=== PATIENT | male | born 1965 | race Caucasian/White ===

== ENCOUNTER 2021-07-16 14:25 | Emergency (ER) | payer OTHER ==
[2021-07-16 15:24] LABS: Urine Blood Negative (Negative); Urine Glucose Negative (Negative); Urine Protein Negative (Negative); Urine Specific Gravity <=1.005 (1.005-1.030); Urine pH 5.5 (5.0-7.0)
[2021-07-16 15:50] LABS: Absolute Lymphocytes (CBC) 2.6 K/uL (0.7-4.9); Basophils % 0.5 % (0-1.3); Hematocrit 44.1 % (39.6-49.0); Lymphocytes % 36.6 % (15.3-44.8); MPV 8.9 fL (7.6-11.3); RBC Red Blood Cell Count 4.62 M/uL (4.33-5.43)
[2021-07-16] MEDS ORDERED: NA CHLORIDE 0.9% 1,000 ML ONE (16:10)
[2021-07-16 16:15] LABS: ALT/SGPT 29 U/L (12-78); AST/SGOT 11 U/L (15-37); Albumin 3.6 g/dL (3.4-5.0); Alkaline Phosphatase 65 U/L (45-117); BUN Blood Urea Nitrogen 10 mg/dL (7-18); Bicarbonate 26 mmol/L (21-32); Bilirubin Direct 0.1 mg/dL (0-0.2); Bilirubin Total 0.4 mg/dL (0.2-1.0); Glucose Level 103 mg/dL (74-106); Lipase 110 U/L (73-393); Potassium 4.1 mmol/L (3.5-5.1); Protein, Total 7.4 g/dL (6.4-8.2); Sodium Level 143 mmol/L (136-145)
[2021-07-16 16:26] LABS: Urine Bacteria NONE SEEN /HPF (NONE SEEN); Urine RBC NONE SEEN /HPF (NONE SEEN)
--- NOTE | 2021-07-16 16:59 | RAD REPORT ---
EXAM DESCRIPTION: CT - Abdomen Pelvis W Contrast - 07/16/2021 4:30 pm CLINICAL HISTORY: Abdominal pain COMPARISON: none. TECHNIQUE: Computed axial tomography of the abdomen pelvis was obtained. 100 cc Isovue-300 was admin istered intravenously. Oral contrast was not requested which limits evaluation of bowel. All CT scans are performed using dose optimization technique as appropriate and may include automated exposure control or mA/KV adjustment according to patient size. FINDINGS: Mild fatty liver The spleen, pancreas, adrenal and kidneys appear unremarkable. Normal appendix Diverticula stem from the colon. Mild stranding adjacent to the sigmoid colon. No free air. No absces s. Mild secondary inflammation involves the adjacent left bladder wall IMPRESSION: Mild sigmoid diverticulitis
--- NOTE | 2021-07-16 17:16 | ER ---
Nurse's Notes [facility] Name: Bobby Smith Age: 56 yrs Sex: Male : 1965 Arrival Date: 07/16/2021 Time: 14:28 Bed DIS2 Private MD: Diagnosis: Diverticulitis of large intestine without perforation or abscess without bleeding-Sigmoid Colon Presentation: 07/16 14:54 Chief complaint: Patient states: Went to PCP today and was told may have 'acute vg1 appendicitis'. About a month ago pt was having RLQ that comes and goes. States NV and constipation. Coronavirus screen: Vaccine status: Patient reports being unvaccinated. Ebola Screen: Patient negative for fever greater than or equal to 101.5 degrees Fahrenheit, and additional compatible Ebola Virus Disease symptoms. Initial Sepsis Screen: Does the patient meet any 2 criteria? No. Patient's initial sepsis screen is negative. Does the patient have a suspected source of infection? No. Patient's initial sepsis screen is negative. Risk Assessment: Do you want to hurt yourself or someone else? Patient reports no desire to harm self or others. Onset of symptoms was June 15, 2021. 14:54 Method Of Arrival: Ambulatory vg1 14:54 Acuity: DREW 3 vg1 Triage Assessment: 14:57 General: Appears in no apparent distress. comfortable, Behavior is calm, cooperative. vg1 Pain: Complains of pain in right lower quadrant. GI: Reports constipation, nausea, vomiting. Historical: - Allergies: 14:57 No Known Allergies; vg1 - Home Meds: 14:57 Flomax Oral [Active]; vg1 - PMHx: 14:57 Prostate; vg1 - PSHx: 14:57 Back; vg1 - Immunization history:: Adult Immunizations up to date, Client reports having NOT received the Covid vaccine. - Social history:: Smoking status: Patient reports the use of cigarette tobacco products, smokes one-half pack cigarettes per day. Screenin:00 Abuse screen: Denies threats or abuse. Denies injuries from another. Nutritional kg screening: No deficits noted. Tuberculosis screening: No symptoms or risk factors identified. Fall Risk None identified. Assessment: 15:00 General: Appears in no apparent distress. Behavior is calm, cooperative, appropriate kg for age, quiet. Pain: Complains of pain in right lower quadrant Pain currently is 8 out of 10 on a pain scale. at worst was 9 out of 10 on a pain scale. level that patient reports is acceptable is 5 out of 10 on a pain scale. Pain began One and off for one month. GI: Bowel sounds present X 4 quads. Abd is soft X 4 quads Abdomen is tender to palpation in right upper quadrant and right lower quadrant Reports constipation, nausea. Vital Signs: 14:54 BP 126 / 75; Pulse 68; Resp 16; Temp 96.8; Pulse Ox 100% ; Weight 89.36 kg; Height 5 vg1 ft. 10 in. (177.80 cm); Pain 5/10; 17:44 BP 149 / 71; Pulse 55; Resp 20; Pulse Ox 100% on R/A; kg 14:54 Body Mass Index 28.27 (89.36 kg, 177.80 cm) vg1 ED Course: 14:28 Patient arrived in ED. rg4 14:57 Triage completed. vg1 14:57 Arm band placed on. vg1 15:00 Patient has correct armband on for positive identification. kg 15:00 No provider procedures requiring assistance completed. IV discontinued, intact, kg bleeding controlled, No redness/swelling at site. Pressure dressing applied. 15:15 Catia Zavala, HARRIET is Primary Nurse. kg 15:20 Irving Panda PA is PHCP. cp 15:20 Hugo Moreno MD is Attending Physician. cp 15:35 Inserted saline lock: 20 gauge in right antecubital area, using aseptic technique. kg Blood collected. 15:40 Lipase Sent. kg 15:40 Hepatic Function Sent. kg 15:40 CBC with Diff Sent. kg 15:40 Basic Metabolic Panel Sent. kg 16:12 Urine Microscopic Only Sent. kg 16:12 Lipase Sent. kg 16:12 Hepatic Function Sent. kg 16:12 Basic Metabolic Panel Sent. kg 16:30 CT Abd/Pelvis - IV Contrast Only In Process Unspecified. EDMS Administered Medications: 15:50 Drug: NS 0.9% 1000 ml Route: IV; Rate: 1 bolus; Site: right antecubital; kg 17:00 Follow up: IV Status: Completed infusion; IV Intake: 700ml kg 17:26 Follow up: Response: No adverse reaction kg 17:25 Drug: metroNIDAZOLE 500 mg Volume: 100 ml; Route: IVPB; Infused Over: 30 mins; Site: kg right antecubital; 17:47 Follow up: Response: No adverse reaction; IV Status: Completed infusion; IV Intake: 50mlkg 17:25 Drug: Cipro (ciprofloxacin) 500 mg Route: PO; kg 17:47 Follow up: Response: No adverse reaction kg Intake: 17:00 IV: 700ml; Total: 700ml. kg 17:47 IV: 50ml; Total: 750ml. kg Outcome: 17:15 Discharge ordered by . lebron 17:46 Discharged to home ambulatory. kg 17:46 Condition: improved 17:46 Discharge instructions given to patient, Instructed on discharge instructions, follow up and referral plans. Demonstrated understanding of instructions, follow-up care, medications, Prescriptions given X 3. 17:47 Patient left the ED. kg Signatures: Dispatcher [employer] EDMS Irving Panda PA PA cp Garcia, Rubi rg4 Akiko Patterson, RN RN vg1 Catia Zavala RN RN kg
--- NOTE | 2021-07-16 17:16 | EDPHYS ---
Physician Documentation [facility] Name: Bobby Smith Age: 56 yrs Sex: Male : 1965 Arrival Date: 07/16/2021 Time: 14:28 Bed DIS2 Private MD: ED Physician Hugo Moreno HPI: 07/16 15:35 This 56 yrs old Male presents to ER via Ambulatory with complaints of cp Abdominal Pain. 15:35 The patient presents with abdominal pain right lower quadrant. Onset: The cp symptoms/episode began/occurred 1 month(s) ago, and became worse 4 day(s) ago. The symptoms do not radiate. 15:35 Associated signs and symptoms: Pertinent positives: nausea, vomiting, and diarrhea, cp anorexia, diarrhea, nausea, palpitations, testicular pain, vomiting blood, right groin and right testicle, Pertinent negatives: nausea, vomiting, and diarrhea, constipation, dysuria, fever. 15:35 The symptoms are described as waxing/waning. cp Historical: - Allergies: 14:57 No Known Allergies; vg1 - Home Meds: 14:57 Flomax Oral [Active]; vg1 - PMHx: 14:57 Prostate; vg1 - PSHx: 14:57 Back; vg1 - Immunization history:: Adult Immunizations up to date, Client reports having NOT received the Covid vaccine. - Social history:: Smoking status: Patient reports the use of cigarette tobacco products, smokes one-half pack cigarettes per day. ROS: 15:40 Abdomen/GI: Positive for abdominal pain, Negative for vomiting, diarrhea, constipation, cp black/tarry stool, rectal bleeding. 15:40 Constitutional: Negative for fever. cp 15:40 : Positive for flank pain, testicular pain Negative for urinary symptoms, hematuria. Exam: 15:45 Constitutional: The patient appears in no acute distress, alert, awake, cp non-diaphoretic, non-toxic, well developed, well nourished. 15:45 Head/Face: Normocephalic, atraumatic. cp 15:45 Eyes: Periorbital structures: appear normal, Conjunctiva: normal, no exudate, no injection, Sclera: no appreciated abnormality, Lids and lashes: appear normal, bilaterally. 15:45 ENT: External ear(s): are unremarkable, Nose: is normal, Mouth: Lips: moist, Posterior pharynx: Airway: no evidence of obstruction, patent. 15:45 Chest/axilla: Inspection: normal. 15:45 Cardiovascular: Rate: normal. 15:45 Respiratory: the patient does not display signs of respiratory distress, Respirations: normal, no use of accessory muscles, no retractions, labored breathing, is not present. 15:45 Abdomen/GI: Exam negative for discomfort, distension, guarding, Inspection: abdomen appears normal, Palpation: soft, in all quadrants, mild abdominal tenderness, in the right lower quadrant, rebound tenderness, is not appreciated, involuntary guarding, is not appreciated. 15:45 Back: CVA tenderness, is absent. Vital Signs: 14:54 BP 126 / 75; Pulse 68; Resp 16; Temp 96.8; Pulse Ox 100% ; Weight 89.36 kg; Height 5 vg1 ft. 10 in. (177.80 cm); Pain 5/10; 17:44 BP 149 / 71; Pulse 55; Resp 20; Pulse Ox 100% on R/A; kg 14:54 Body Mass Index 28.27 (89.36 kg, 177.80 cm) vg1 MDM: 15:30 Patient medically screened. cp 16:00 Differential diagnosis: appendicitis, bowel obstruction, non-specific abd pain, cp Ureterolithiasis, urinary tract infection, diverticulitis. 17:15 Data reviewed: vital signs, nurses notes, lab test result(s), radiologic studies, CT cp scan. 17:15 Counseling: I had a detailed discussion with the patient and/or guardian regarding: the cp historical points, exam findings, and any diagnostic results supporting the discharge/admit diagnosis, lab results, radiology results, the need for outpatient follow up, a family practitioner, to return to the emergency department if symptoms worsen or persist or if there are any questions or concerns that arise at home. ED course: VSS. Patient appears non-toxic. Patient refused any pain medications while being evaluated in ED. Will discharge to home for continued monitoring with RXs for oral antibiotics. 07/16 15:23 Order name: Urine Dipstick-Ancillary; Complete Time: 16:27 EDMS 07/16 16:27 Interpretation: Reviewed. 07/16 15:34 Order name: Basic Metabolic Panel; Complete Time: 16:27 cp 07/16 16:27 Interpretation: Normal except: CL 111. cp 07/16 15:34 Order name: CBC with Diff; Complete Time: 16:27 cp 07/16 16:27 Interpretation: Reviewed. 07/16 15:34 Order name: Hepatic Function; Complete Time: 16:27 cp 07/16 16:27 Interpretation: Normal except: AST 11; GLOB 3.8; A/G 0.9. cp 07/16 15:34 Order name: Lipase; Complete Time: 16:27 cp 07/16 15:34 Order name: Urine Microscopic Only; Complete Time: 16:27 cp 07/16 16:27 Interpretation: Reviewed. 07/16 15:34 Order name: IV Saline Lock; Complete Time: 15:40 cp 07/16 15:34 Order name: Labs collected and sent; Complete Time: 15:40 cp 07/16 15:47 Order name: CT Abd/Pelvis - IV Contrast Only; Complete Time: 17:10 cp Administered Medications: 15:50 Drug: NS 0.9% 1000 ml Route: IV; Rate: 1 bolus; Site: right antecubital; kg 17:00 Follow up: IV Status: Completed infusion; IV Intake: 700ml kg 17:26 Follow up: Response: No adverse reaction kg 17:25 Drug: metroNIDAZOLE 500 mg Volume: 100 ml; Route: IVPB; Infused Over: 30 mins; Site: kg right antecubital; 17:47 Follow up: Response: No adverse reaction; IV Status: Completed infusion; IV Intake: 50mlkg 17:25 Drug: Cipro (ciprofloxacin) 500 mg Route: PO; kg 17:47 Follow up: Response: No adverse reaction kg Disposition: 17:25 Chart complete. cp 18:06 Co-signature as Attending Physician, Hugo Moreno MD I agree with the assessment and rn plan of care. Attestation: The patient's history, exam findings, diagnostics, and a summary of any interventions or procedures was reviewed in detail with Irving BENSON. Disposition Summary: 07/16/21 17:15 Discharge Ordered Location: Home cp Problem: new cp Symptoms: have improved cp Condition: Stable cp Diagnosis - Diverticulitis of large intestine without perforation or abscess without bleeding - cp Sigmoid Colon Followup: cp - With: Private Physician - When: 2 - 3 days - Reason: Recheck today's complaints Discharge Instructions: - Discharge Summary Sheet cp - High-Fiber Diet cp - Diverticulitis cp Forms: - Medication Reconciliation Form cp - Thank You Letter cp - Antibiotic Education cp - Prescription Opioid Use cp Prescriptions: - Zofran 4 mg Oral Tablet - take 1 tablet by ORAL route every 12 hours As needed; 20 tablet; Refills: 0, cp Product Selection Permitted - Cipro 500 mg Oral Tablet - take 1 tablet by ORAL route every 12 hours for 7 days; 14 tablet; Refills: 0, cp Product Selection Permitted - Metronidazole 500 mg Oral Tablet - take 1 tablet by ORAL route every 8 hours; 30 tablet; Refills: 0, Product cp Selection Permitted Signatures: Dispatcher [employer] EDHugo Guo MD MD rn Page, Corey, PA PA cp Garcia, Victoria RN RN vg1 Catia Zavala RN RN kg
[2021-07-16] MEDS ORDERED: METRONIDAZOLE 500mg IVPB 500 MG/100 ML BAG IV ONE (17:45)
[2021-07-16] MEDS ORDERED: CIPROFLOXACIN HCL 500 MG TAB ONE (17:45)
[2021-07-16 17:53] VITALS: TEMP 96.8; O2SAT 100
[2021-07-16 17:54] VITALS: BP 149/71
== END 2021-07-16 17:47 | disposition home or self-care (01) ==
LOC: ER 14:25
DX: K57.32 Diverticulitis of large intestine without perforation or abscess without bleeding (principal); F17.210 Nicotine dependence, cigarettes, uncomplicated
CPT/HCPCS: 96365; 96361; 85025; 80048; 36415; 80076; 83690; 74177; 99284; Q9967; J7030; 81003; 81015

== ENCOUNTER 2025-08-04 10:30 | Emergency (ER) | payer OTHER ==
[2025-08-04] MEDS ORDERED: IBUPROFEN 400 MG TAB ONE (10:48)
[2025-08-04] MEDS ORDERED: HYDROCODONE/APAP 5/325 MG TAB ONE (10:48)
--- NOTE | 2025-08-04 11:47 | RAD REPORT ---
EXAM: XR Hand Left 3 View HISTORY: [facility] MAIN Swelling;Pain Bed:IW1 COMPARISON: None TECHNIQUE: 3 radiographic views of the LEFT hand submitted. FINDINGS: No evidence of acute fracture or dislocation. Joint alignment is maintained. Mild second d igit soft tissue swelling is seen.. Radiopaque linear foreign object along the volar aspect of the second digit distal phalanx. Small lucent lesion within the distal scaphoid, may suggest a benign bon e cyst. IMPRESSION: Radiopaque linear foreign body along the volar aspect of the second digit distal phalanx.
[2025-08-04] MEDS ORDERED: LIDOCAINE 1% 20 ML MDV ONE (11:48)
--- NOTE | 2025-08-04 12:47 | ER ---
Nurse's Notes [facility] Name: Bobby Smith Age: 60 yrs Sex: Male : 1965 Arrival Date: 08/04/2025 Time: 10:30 Bed 13 Private MD: Diagnosis: Laceration with foreign body of left index finger without damage to nail Presentation: 08/04 10:39 Chief complaint: Patient states: got a piece of metal in his left index finger since iw Tuesday. Coronavirus screen: At this time, the client does not indicate any symptoms associated with coronavirus-19. Ebola Screen: No symptoms or risks identified at this time. Initial Sepsis Screen: Does the patient meet any 2 criteria? No. Patient's initial sepsis screen is negative. Does the patient have a suspected source of infection? No. Patient's initial sepsis screen is negative. Risk Assessment: Do you want to hurt yourself or someone else? Patient reports no desire to harm self or others. Onset of symptoms was August 02, 2025. 10:39 Method Of Arrival: Ambulatory iw 10:39 Acuity: DREW 4 iw Triage Assessment: 12:51 General: Appears. ap3 Historical: - Allergies: 10:41 No Known Allergies; iw - PMHx: 10:41 Prostate; Hypertensive disorder; iw - PSHx: 10:41 back; iw - Immunization history:: Last tetanus immunization: up to date. - Infectious Disease History:: Denies. - Social history:: Smoking status: Patient reports the use of cigarette tobacco products, smokes one pack cigarettes per day. Screenin:50 [facility] ED Fall Risk Assessment (Adult) History of falling in the last 3 months, ap3 including since admission No falls in past 3 months (0 pts) Confusion or Disorientation No (0 pts) Intoxicated or Sedated Impaired Gait No (0 pts) Mobility Assist Device Used No (0 pt) Altered Elimination No (0 pt) Score/Fall Risk Level 0 - 2 = Low Risk Oriented to surroundings, Maintained a safe environment, Educated pt \T\ family on fall prevention, incl call for assistance when getting out of bed, Assessed \T\ reinforced patient's understanding of fall precautions, Hourly rounding (assess needs \T\ fall precautionary measures) done, Used ambulatory aids as needed (educated on \T\ assisted with). Abuse screen: Denies threats or abuse. Nutritional screening: No deficits noted. Tuberculosis screening: No symptoms or risk factors identified. Assessment: 12:51 General: Appears in no apparent distress. Behavior is calm, cooperative, appropriate ap3 for age. Pain: Complains of pain in right index finger. Neuro: Level of Consciousness is awake, alert, obeys commands, Oriented to person, place, time, situation, Appropriate for age. Cardiovascular: Patient's skin is warm and dry. Respiratory: Airway is patent Respiratory effort is even, unlabored, Respiratory pattern is regular, symmetrical. Derm: Wound noted palmar aspect of distal phalanx of left index finger. Vital Signs: 10:39 BP 136 / 72; Pulse 57; Resp 16; Temp 97.6; Pulse Ox 100% on R/A; Weight 87.09 kg; iw Height 5 ft. 9 in. ; Pain 7/10; 12:53 BP 135 / 76; Pulse 62; Resp 17; Pulse Ox 99% ; ap3 10:39 Body Mass Index 28.35 (87.09 kg, 175.26 cm) iw 10:39 Pain Scale: Adult iw ED Course: 10:34 Patient arrived in ED. im 10:34 Jevon Marcial FNP-C is PHCP. dr5 10:34 Irving Briscoe MD is Attending Physician. dr5 10:41 Triage completed. iw 10:41 Arm band placed on. iw 10:50 Alba Mendoza, RN is Primary Nurse. ap3 11:26 Hand Left 3 View XRAY In Process Unspecified. EDMS 12:51 Assist provider with laceration repair on palmar aspect of distal phalanx of left index ap3 finger using sutures. Set up tray. Performed by Jevon GARZA Dressed with Neosporin, Patient tolerated well. Patient did not have IV access during this emergency room visit. 12:53 Patient has correct armband on for positive identification. Bed in low position. Call ap3 light in reach. Adult w/ patient. Provided Education on: discharge instructions. Administered Medications: 11:04 Not Given (Patient Refused): hydrocodone-acetaminophen5 mg-325 mg 2 tabs PO once ap3 11:04 Not Given (Patient Refused): [id number] mg PO once ap3 12:50 Drug: Lidocaine Infiltration (1 %) 20 ml 20 ml Infiltration once; to bedside {Note: by ap3 FNP. Jevon} Volume: 20 ml; Route: Infiltration; 12:50 Follow up: Response: No adverse reaction ap3 Medication: 12:52 VIS not applicable for this client. ap3 Outcome: 12:46 Discharge ordered by . dr5 12:52 Discharged to home ambulatory, with family, ap3 12:52 Condition: good 12:52 Discharge instructions given to patient, Instructed on discharge instructions, follow up and referral plans. medication usage, Demonstrated understanding of instructions, follow-up care, medications, Prescriptions given X 2, 12:54 Patient left the ED. ap3 Signatures: Dispatcher [employer] EDMS Jordyn Kimball RN RN iw Alba Mendoza RN RN ap3 Bridgett Ziegler Dustin, FNP-C FNP-Cdr5
--- NOTE | 2025-08-04 12:47 | EDPHYS ---
Physician Documentation [facility] Name: Bobby Smith Age: 60 yrs Sex: Male : 1965 Arrival Date: 08/04/2025 Time: 10:30 Bed 13 Private MD: ED Physician Irving Briscoe HPI: 08/04 12:46 This 60 yrs old Male presents to ER via Ambulatory with complaints of Hand dr5 Swelling - left index finger. 12:48 Patient is a 60-year-old male with history of hypertension coming in with foreign body dr5 to left index finger that occurred on Tuesday. Patient states he removed a piece of metal but thinks there is a piece still stuck in his left index finger. Patient has fever, shortness of breath, chest pain.. Historical: - Allergies: 10:41 No Known Allergies; iw - PMHx: 10:41 Prostate; Hypertensive disorder; iw - PSHx: 10:41 back; iw - Immunization history:: Last tetanus immunization: up to date. - Infectious Disease History:: Denies. - Social history:: Smoking status: Patient reports the use of cigarette tobacco products, smokes one pack cigarettes per day. ROS: 12:48 Constitutional: as per hpi dr5 Exam: 12:48 Constitutional: This is a well developed, well nourished patient who is awake, alert, dr5 and in no acute distress. Head/Face: Normocephalic, atraumatic. Eyes: Pupils equal round and reactive to light, extra-ocular motions intact. Lids and lashes normal. Conjunctiva and sclera are non-icteric and not injected. Cornea within normal limits. Periorbital areas with no swelling, redness, or edema. ENT: Nares patent. No nasal discharge, no septal abnormalities noted. Tympanic membranes are normal and external auditory canals are clear. Oropharynx with no redness, swelling, or masses, exudates, or evidence of obstruction, uvula midline. Mucous membranes moist. Chest/axilla: Normal chest wall appearance and motion. Nontender with no deformity. No lesions are appreciated. Cardiovascular: Regular rate and rhythm with a normal S1 and S2. Normal PMI, no JVD. No pulse deficits. Respiratory: Lungs have equal breath sounds bilaterally, clear to auscultation. No rales, rhonchi or wheezes noted. No increased work of breathing, no retractions or nasal flaring. Back: No spinal tenderness. No costovertebral tenderness. Full range of motion. MS/ Extremity: Pulses equal, no cyanosis. Neurovascular intact. Full, normal range of motion. Neuro: Awake and alert, GCS 15, oriented to person, place, time, and situation. Cranial nerves II-XII grossly intact. Motor strength 5/5 in all extremities. Sensory grossly intact. Cerebellar exam normal. Normal gait. 12:48 Skin: injury, Old puncture wound noted to left distal index finger that has healed. Mild swelling noted with full range of motion. NVI, Vital Signs: 10:39 BP 136 / 72; Pulse 57; Resp 16; Temp 97.6; Pulse Ox 100% on R/A; Weight 87.09 kg; iw Height 5 ft. 9 in. ; Pain 7/10; 12:53 BP 135 / 76; Pulse 62; Resp 17; Pulse Ox 99% ; ap3 10:39 Body Mass Index 28.35 (87.09 kg, 175.26 cm) iw 10:39 Pain Scale: Adult iw Procedures: 12:48 Foreign Body Removal: a piece of metal, from the left palmar aspect of distal phalanx dr5 of left index finger, by incising to remove, using lidocaine 1% without epinephrine to anesthesize the area, tweezers, Dressing: The patient tolerated the removal well, Unable to retrieve piece of metal. Explored wound after incision for 15 minutes with no retrieval of piece of metal. Measured on x-ray approximately 9.8mm from surface.. Laceration: 12:48 Wound Repair of 1cm ( 0.4in ) subcutaneous laceration to palmar aspect of distal dr5 phalanx of left index finger. Linear shaped.. Distal neuro/vascular/tendon intact. Anesthesia: Local anesthetic administered with 2 mls of 1% lidocaine. Wound prep: Simple cleansing. Skin closed with 1 4-0 Prolene using simple sutures and sterile technique. Dressed with non-adherent dressing. Patient tolerated well. MDM: 10:34 Medical Screening Exam initiated dr5 12:48 Differential Diagnosis Foreign Body, Cellulitis, Abrasion. Data reviewed: vital signs, dr5 nurses notes, radiologic studies, plain films. Consideration of Admission/Observation Escalation of care including admission/observation considered. Escalation considered if patient had neurovascular compromise of finger. I considered the following discharge prescriptions or medication management in the emergency department I discussed and recommended Over The Counter medications, Medications were administered in the Emergency Department. See MAR. Independent interpretation of the following test(s) in the Emergency Department X-Ray: My interpretation is Independent interpretation of x-ray reveals piece of metal in finger. Care significantly affected by the following chronic conditions: Hypertension. Care significantly affected by the following Social Determinants of Health: Poor access to healthcare and/or lack of insurance, Poor access to transportation, Problems related to employment. Counseling: I had a detailed discussion with the patient and/or guardian regarding the historical points, exam findings, and any diagnostic results supporting the discharge/admit diagnosis, the presence of at least one elevated blood pressure reading (>120/80) during this emergency department visit, the need for outpatient follow up, for definitive care, Yonny Gray in [place], to return to the emergency department if symptoms worsen or persist or if there are any questions or concerns that arise at home. Medication response: Lidocaine. Response to treatment: the patient's symptoms have resolved after treatment. Special discussion: I discussed with the patient/guardian in detail that at this point there is no indication for admission to the hospital. It is understood, however, that if the symptoms persist or worsen the patient needs to return immediately for re-evaluation. Based on the history and exam findings, there is no indication for further emergent testing or inpatient evaluation. I discussed with the patient/guardian the need to see the hand specialist for further evaluation of the symptoms. ED course: Recommended patient follow Dr. Yonny Gray tomorrow for foreign body removal. Offered patient to be transferred downtown today for removal but patient kindly declined and would like to go outpatient. Attempted several times to remove piece of metal but unable to retrieve. Will start patient on Keflex. All questions answered. Strict ER precautions given.. 08/04 10:39 Order name: Hand Left 3 View XRAY; Complete Time: 11:53 dr5 Administered Medications: 11:04 Not Given (Patient Refused): hydrocodone-acetaminophen5 mg-325 mg 2 tabs PO once ap3 11:04 Not Given (Patient Refused): [id number] mg PO once ap3 12:50 Drug: Lidocaine Infiltration (1 %) 20 ml 20 ml Infiltration once; to bedside {Note: by ap3 LINO Escoto.} Volume: 20 ml; Route: Infiltration; 12:50 Follow up: Response: No adverse reaction ap3 Disposition Summary: 08/04/25 12:46 Discharge Ordered Notes: Location: Home dr5 Condition: Stable dr5 Diagnosis - Laceration with foreign body of left index finger without damage to nail dr5 Followup: dr5 - With: Emergency Department - When: As needed - Reason: Worsening of condition Followup: dr5 - With: Private Physician - When: 1 - 2 days - Reason: Recheck today's complaints, Continuance of care, Re-evaluation by your physician Discharge Instructions: - Discharge Summary Sheet dr5 - Hand or Foot Foreign Body, Adult dr5 Forms: - Medication Reconciliation Form dr5 - Antibiotic Education dr5 - Patient Portal Instructions dr5 - Leadership Thank You Letter dr5 Prescriptions: - Cephalexin 500 mg Oral Capsule - take 1 capsule ORAL route every 12 hours for 10 days; 20 capsule; Refills: 0, dr5 Product Selection Permitted - Ibuprofen 800 mg Oral Tablet - take 1 tablet ORAL route every 12 hours As needed take with food; 20 tablet; dr5 Refills: 0, Product Selection Permitted Signatures: Dispatcher [employer] Jordyn Sullivan RN RN iw Prokisch, Amanda, RN RN ap3 Jevon Marcial, OUTSOLE LEVELER-C OUTSOLE LEVELER-Cdr5
[2025-08-04 14:44] VITALS: TEMP 97.6
[2025-08-04 14:45] VITALS: BP 135/76; O2SAT 99
== END 2025-08-04 12:54 | disposition home or self-care (01) ==
LOC: ER 10:30
PROC: 0HCGXZZ Extirpation of Matter from Left Hand Skin, External Approach (ICD-10-PCS; principal; 2025-08-04)
DX: S61.221A Laceration with foreign body of left index finger without damage to nail, initial encounter (principal)
CPT/HCPCS: 12001; 73130; 99283; 10120; J2003

== ENCOUNTER 2025-08-07 09:13 | Day surgery (SDC) | payer OTHER ==
[2025-08-07] MEDS ORDERED: Ringers Lactate 1,000 ML IV ONE (09:30)
[2025-08-07 10:33] LABS: Absolute Lymphocytes (CBC) 1.9 K/uL (0.7-4.9); Hematocrit 49.0 % (39.6-49.0); Hemoglobin 17.1 g/dL (13.6-17.9); MCH 33.2 pg (27.0-35.0); MCHC 34.9 g/dL (32.0-36.0); MCV 94.9 fL (80-100); MPV 9.2 fL (7.6-11.3); Nucleated RBC Absolute Count 0.0 (0-0); Nucleated Red Blood Cells % 0.1 % (0-0); RBC Red Blood Cell Count 5.17 M/uL (4.33-5.43); White Blood Count 5.90 thou/uL (4.3-10.9)
--- NOTE | 2025-08-07 10:35 | RAD REPORT ---
EXAM: Chest Pa And Lat (2 Views) HISTORY: 60 years Male preop SDS Rm 5 COMPARISON: 08/29/2024 FINDINGS: LUNGS/PLEURA: The lungs are clear. No pleural effusions or pneumothorax. No pulmonary edema. CARDIAC/MEDIASTINUM: The cardiac silhouette is within normal limits. UPPER ABDOMEN: No significant abnormality. BONES: No acute abnormality. LINES/TUBES/OTHER: N/A IMPRESSION: No evidence of acute cardiopulmonary disease.
[2025-08-07] MEDS ORDERED: MIDAZOLAM HCL 2 MG/2 ML INJ ONE ×2 (11:09→11:36)
[2025-08-07] MEDS ORDERED: FENTANYL CITR 100 MCG/2 ML ONE ×2 (11:09→11:36)
[2025-08-07] MEDS ORDERED: LIDOCAINE 2% MPF 5 ML VIAL ONE (11:26)
[2025-08-07] MEDS ORDERED: EPHEDRINE SULF 50 MG/ML VIAL ONE (11:37)
[2025-08-07] MEDS: CEFAZOLIN SODIUM 1 GM/VIAL ONE (11:38)
[2025-08-07] MEDS ORDERED: ONDANSETRON 4 MG/2 ML VIAL ONE (11:53)
--- NOTE | 2025-08-07 12:38 | RAD REPORT ---
EXAM: Fluoroscopy use, Fluoroscopy <1 Hour HISTORY: FB REMOVAL FROM HAND COMPARISON: None FINDINGS: A total of 30 images were sent to PACS, during a fluoroscopically guided foreign body remov al at the second finger. No radiologist was involved in protocoling or performance of the study, and no radiologist was present for the duration of the procedure. No interpretation of the saved imag es will be provided. Total fluoroscopy time: 0.5. Cumulative dose: 0.546 mGy IMPRESSION: Documentation of fluoroscopy use as above.
[2025-08-07 13:06] VITALS: BP 119/58; TEMP 97.2; O2SAT 95
--- NOTE | 2025-08-12 13:36 | P.BOP ---
Preoperative diagnosis: traumatic pucture left index finger with retained foreign body Postoperative diagnosis: same Primary procedure: Wound exploration left index finger with removal of foreign body Secondary procedure: with fluoroscopy Estimated blood loss: <1cc Specimen: FB Findings: FB Anesthesia: General Complications: None Transferred to: Recovery Room Condition: Good
--- NOTE | 2025-08-13 00:04 | DS ---
Date of Discharge: 08/07/2025 Diagnosis: Traumatic puncture wound in left index finger with retained foreign body. Procedure: Wound exploration of left index finger with removal of foreign body under fluoroscopy. Condition: Stable. Disposition: Home. Activity: As tolerated. No lifting. Followup: In my office in 1 week. Call for appointment at [phone]. Keep area dry for 24 hours, th en clean with soap and water, but I asked him until this completely close to clean them only with run whit clean water and soap cleaning with that. He understood. He is going to be placed on antibiotic s and pain medication. VIK/MODL Voice ID: [id number] Report ID: [id number]
--- NOTE | 2025-08-13 00:14 | OP ---
Date of Procedure: 08/07/2025 Surgeon: Isaac Buitrago MD Preoperative Diagnosis: Traumatic puncture wound in left index finger with retained foreign body. Postoperative Diagnosis: Traumatic puncture wound in left index finger with retained foreign body. Procedure: Wound exploration of left index finger wound with removal of foreign body under fluorosco py. Estimated Blood Loss: Less than 1 cc. Specimen: Foreign body. Finding: Foreign body. Anesthesia: General plus local. Complications: None. Indications: This is the case of a 60-year-old patient, who was working with metal objects and recei ren a puncture wound to his left finger, came to the ER, received exploration of the area with a diff erent incision. They could not find a foreign body, so he was sent to my office since it was not get ting better and getting more tender, to have it explored and removed. I offered him to do that, but under controlled setting under some anesthetic, since he could not take the pain in ER and they did n ot have fluoroscopy there, but I am going to use fluoroscopy since we know his metal. The x-ray that we did shows also still present the foreign bodies. The benefits, alternatives, and risks of wound exploration with possible removal of foreign body under fluoroscopy fully explained to the patient, w hich include, but not limited to infection, bleeding, damage to adjacent structures, anesthesia compl ication, nonhealing wound, KS, and even . He also understands this may not relieve symptoms. H e might need more than one surgical intervention. He understood, signed a consent. Description Of Procedure: The patient was brought to the operating room, placed in supine position. Anesthesia was induced without complication. Left hand was prepped and draped in a sterile fashion. A time-out was called. Local anesthesia was applied followed by removal of the incision that they previously done in an ER, removed that tissue from there, trying to use that same wound. To explore the area now, we advanced the fluoroscopy, so we used fluoroscopy. We still noticed a foreign body p resent, so under manipulation and exploration with proper instruments, we were able to find the forei gn body, extracted, irrigated the area, and replaced 1 stitch back. The rest of the wound was left t o close by secondary intention. Irrigation was done before closure, also hemostasis, and sterile benton ssings over the area. The patient tolerated the procedure well. The patient on his way to recovery in stable condition after putting sterile dressings. VIK/JACOB Voice ID: [id number] Report ID: [id number]
== END 2025-08-07 13:23 | disposition home or self-care (01) ==
LOC: OR 09:13
PROVIDERS: ATTEND Surgery
PROC: 0JCK0ZZ Extirpation of Matter from Left Hand Subcutaneous Tissue and Fascia, Open Approach (ICD-10-PCS; 2025-08-07)
PROC: 0JCK0ZZ Extirpation of Matter from Left Hand Subcutaneous Tissue and Fascia, Open Approach (ICD-10-PCS; principal; 2025-08-07 11:15)
DX: S60.451A Superficial foreign body of left index finger, initial encounter (principal)
CPT/HCPCS: 93005; 85025; 36415; 88300; 71046; 76000; 10120; J2704; J2003; J2250; J3010; J1100; J2405; J7120; J0690